=== PATIENT | male | born 1935 | race Caucasian/White ===

== ENCOUNTER → 2018-01-06 13:31 | Outpatient (CLI) | payer MEDICARE ==
[2014-11-10 09:37] VITALS: BMI 22.7
[~2018-01-06 13:31] MED LIST: ALLERGY SHOTS INJ; ASPIRIN 81 MG E81 MG PO; ASTELIN137 MCG NS; AVODART0.5 MG PO; BETAPACE 80 MG80 MG PO; BUSPAR10 MG; COREG12.5 MG PO; COUMADIN2.5 MG PO; COUMADIN5 MG PO; FLOMAX0.4 MG PO; GLUCOPHAGE500 MG PO; LEVAQUIN500 MG PO; LEVOTHROID25 MCG PO; LIPITOR20 MG PO; LIPITOR40 MG PO; MILK OF MAGNESI30 ML PO; MUCINEX600 MG PO; MULTIPLE VITAMI1 TA1 PO; MYSOLINE 50 MG50 MG PO; PRINIVIL10 MG PO; PRINIVIL20 MG PO; REQUIP0.5 MG PO; SYNTHROID50 MCG PO; TRIDESILON 0.0515 GM TP; TYLENOL 8 HOUR650 MG PO; XARELTO20 MG PO
== END | disposition home or self-care (01) ==
LOC: D.CT 13:30
DX: I73.9 Peripheral vascular disease, unspecified (principal)

== ENCOUNTER → 2019-03-28 08:57 | Outpatient (CLI) | payer MEDICARE ==
[2014-11-10 09:37] VITALS: BMI 22.7
== END | disposition home or self-care (01) ==
LOC: D.HCCECHO 08:57
PROVIDERS: ATTEND Internal Medicine Cardiovascular Disease
DX: I10 Essential (primary) hypertension (principal)

== ENCOUNTER → 2020-07-25 11:24 | Outpatient (CLI) | payer MEDICARE ==
[2014-11-10 09:37] VITALS: BMI 22.7
== END | disposition home or self-care (01) ==
LOC: D.CT 11:00
PROVIDERS: ATTEND Family Medicine
DX: I70.211 Atherosclerosis of native arteries of extremities with intermittent claudication, right leg (principal)